=== PATIENT | female | born 1970 | race Caucasian/White ===

== ENCOUNTER 2021-09-06 20:48 | Emergency (ER) | payer MEDICAID ==
[2021-09-06] MEDS ORDERED: Albuterol/Ipratropium 3.0-0.5 MG/3 ML Neb Soln NEB ONE ×3 (22:16)
[2021-09-06 22:48] LABS: BLOOD UREA NITROGEN,BUN 8 mg/dL (7.0-18.0); CARBON DIOXIDE,CO2 26.4 mmol/L (21.0-32.0); CHLORIDE,CL 99 mmol/L (98-107); GLUCOSE RANDOM 109 mg/dL (74-106); POTASSIUM,K 3.2 mmol/L (3.5-5.1); SODIUM,NA 139 mmol/L (136-145)
[2021-09-06 23:10] LABS: CORONAVIRUS COVID-19 NAA POSITIVE (NEGATIVE); INFLUENZA A NAA NEGATIVE (NEGATIVE); INFLUENZA B NAA NEGATIVE (NEGATIVE)
== END 2021-09-06 23:40 | disposition home or self-care (01) ==
LOC: MW.ED 20:48
DX: U07.1 COVID-19 (principal); J20.9 Acute bronchitis, unspecified; Z88.0 Allergy status to penicillin; Z88.5 Allergy status to narcotic agent
CPT/HCPCS: 0240U; 36415; 71045; 80053; 85025; 93005; 99285; J7620-GY

== ENCOUNTER 2021-09-15 01:04 | Emergency (ER) | payer MEDICAID | END 2021-09-15 02:53 | disposition home or self-care (01) | LOC: MW.ED 01:04 | DX: S70.01XA Contusion of right hip, initial encounter (principal); S20.212A Contusion of left front wall of thorax, initial encounter; N39.0 Urinary tract infection, site not specified; Z88.0 Allergy status to penicillin; Z88.1 Allergy status to other antibiotic agents; Y04.0XXA Assault by unarmed brawl or fight, initial encounter | CPT/HCPCS: 99283 ==

== ENCOUNTER 2021-09-26 01:09 | Emergency (ER) | payer MEDICAID ==
[2021-09-26] MEDS ORDERED: Iopamidol 755 MG/ML 500 ML Multipack Bottle IVPUSH ONE (01:58)
[2021-09-26 02:20] LABS: BLOOD UREA NITROGEN,BUN 7 mg/dL (7.0-18.0); CARBON DIOXIDE,CO2 28.5 mmol/L (21.0-32.0); CHLORIDE,CL 105 mmol/L (98-107); GLUCOSE RANDOM 105 mg/dL (74-106); POTASSIUM,K 3.5 mmol/L (3.5-5.1); SODIUM,NA 145 mmol/L (136-145)
[2021-09-26] MEDS ORDERED: Acetaminophen 500 MG Tab PO ONE (03:04)
== END 2021-09-26 03:48 | disposition left against medical advice (07) ==
LOC: MW.ED 01:09
DX: S00.03XA Contusion of scalp, initial encounter (principal); Z88.0 Allergy status to penicillin; Z88.5 Allergy status to narcotic agent; Y04.0XXA Assault by unarmed brawl or fight, initial encounter
CPT/HCPCS: 36415; 70450; 70498; 71045; 80053; 81003; 85025; 85610; 99284; A9270; Q9967; 99283

== ENCOUNTER 2022-05-23 12:24 | Emergency (ER) | payer OTHER, MEDICAID ==
[2022-05-23] MEDS ORDERED: Diphtheria,Pertussis(Acell),Tetanus Vaccine 0.5 ML Syringe IM ONE (13:30)
== END 2022-05-23 13:59 | disposition home or self-care (01) ==
LOC: MW.ED 12:24
DX: S61.233A Puncture wound without foreign body of left middle finger without damage to nail, initial encounter (principal); F17.210 Nicotine dependence, cigarettes, uncomplicated; Z88.0 Allergy status to penicillin; Z88.5 Allergy status to narcotic agent; Z23 Encounter for immunization; W27.3XXA Contact with needle (sewing), initial encounter
CPT/HCPCS: 36415; 86706; 86803; 87340; 87389; 90471; 90715; 99283-25

== ENCOUNTER 2022-09-05 22:08 | Emergency (ER) | payer MEDICAID ==
[2022-09-05] MEDS ORDERED: methylPREDNISolone Sodium Succinate 125 MG/2 ML SDV IVPUSH ONE (22:54)
[2022-09-05] MEDS ORDERED: Sodium Chloride 0.9% 10 ML Syringe FLUSH PRN (22:54)
[2022-09-05] MEDS ORDERED: Albuterol/Ipratropium 3.0-0.5 MG/3 ML Neb Soln NEB ONE (22:54)
[2022-09-05] MEDS ORDERED: Sodium Chloride 0.9% 1,000 ML IV ONE (22:54)
[2022-09-05] MEDS ORDERED: cefTRIAXone 2 GM in Premix Bag 1 BAG IV ONE (22:54)
[2022-09-05] MEDS ORDERED: Doxycycline 100 MG Cap PO ONE (22:54)
[2022-09-05] MEDS ORDERED: Sodium Chloride 0.9% 2.5 ML Syringe FLUSH PRN (22:54)
[2022-09-06 00:22] LABS: CARBON DIOXIDE,CO2 27.3 mmol/L (21.0-32.0); POTASSIUM,K 3.3 mmol/L (3.5-5.1)
[2022-09-06 00:48] LABS: CORONAVIRUS COVID-19 NAA NEGATIVE (NEGATIVE); INFLUENZA A NAA NEGATIVE (NEGATIVE); INFLUENZA B NAA NEGATIVE (NEGATIVE); RESPIRATORY SYNCYTIAL VIR NAA NEGATIVE (NEGATIVE)
== END 2022-09-06 01:50 | disposition left against medical advice (07) ==
LOC: MW.ED 22:08
DX: J44.1 Chronic obstructive pulmonary disease with (acute) exacerbation (principal); Z88.0 Allergy status to penicillin; Z88.5 Allergy status to narcotic agent; Z20.822 Contact with and (suspected) exposure to COVID-19
CPT/HCPCS: 0241U; 36415; 71046; 80048; 83735; 84484; 85025; 96365; 96375; 99285; A9270; J0696; J2930; J3490; J7030; 99284; J7620-GY

== ENCOUNTER 2023-01-09 22:40 | Emergency (ER) | payer MEDICAID ==
[2023-01-09] MEDS ORDERED: Ibuprofen 600 MG Tab PO ONE (23:23)
[2023-01-09] MEDS ORDERED: Acetaminophen/oxyCODONE 325-5 MG Tab PO ONE (23:23)
== END 2023-01-09 23:36 | disposition home or self-care (01) ==
LOC: MW.ED 22:40
DX: T65.891A Toxic effect of other specified substances, accidental (unintentional), initial encounter (principal); T21.45XA Corrosion of unspecified degree of buttock, initial encounter; J44.9 Chronic obstructive pulmonary disease, unspecified; Z88.0 Allergy status to penicillin; Z88.5 Allergy status to narcotic agent
CPT/HCPCS: 99283; A9270

== ENCOUNTER 2023-06-01 08:16 | Emergency (ER) | payer MEDICAID ==
[2023-06-01] MEDS ORDERED: Ibuprofen 600 MG Tab PO ONE (08:35)
[2023-06-01] MEDS ORDERED: Acetaminophen/oxyCODONE 325-5 MG Tab PO ONE (08:35)
== END 2023-06-01 09:24 | disposition home or self-care (01) ==
LOC: MW.ED 08:16
DX: M19.90 Unspecified osteoarthritis, unspecified site (principal); F17.210 Nicotine dependence, cigarettes, uncomplicated; Z88.0 Allergy status to penicillin; Z88.5 Allergy status to narcotic agent
CPT/HCPCS: 73100; 73120; 99283; A9270

== ENCOUNTER 2023-08-10 16:54 | Emergency (ER) | payer MEDICAID ==
[2023-08-10] MEDS: traMADol 50 MG Tab PO STA (18:39)
== END 2023-08-10 19:51 | disposition home or self-care (01) ==
LOC: MW.ED 16:54
DX: M54.50 Low back pain, unspecified (principal); F17.210 Nicotine dependence, cigarettes, uncomplicated; Z88.0 Allergy status to penicillin; Z88.5 Allergy status to narcotic agent; Z90.710 Acquired absence of both cervix and uterus; W10.8XXA Fall (on) (from) other stairs and steps, initial encounter
CPT/HCPCS: 72131; 72192; 99283; A9270

== ENCOUNTER 2023-08-19 13:37 | Emergency (ER) | payer MEDICAID | END 2023-08-19 14:59 | disposition home or self-care (01) | LOC: MW.ED 13:37 | DX: H10.32 Unspecified acute conjunctivitis, left eye (principal); Z88.0 Allergy status to penicillin; Z88.5 Allergy status to narcotic agent; Z90.710 Acquired absence of both cervix and uterus | CPT/HCPCS: 99283 ==

== ENCOUNTER 2023-09-12 21:53 | Emergency (ER) | payer MEDICAID ==
[2023-09-12 22:39] LABS: BASOPHILS ABSOLUTE AUTO 0.01 K/uL (0.00-0.20); BASOPHILS PERCENT AUTO 0.1 % (0.0-1.0); EOSINOPHILS ABSOLUTE AUTO 0.12 K/uL (0.00-0.45); EOSINOPHILS PERCENT AUTO 1.1 % (0.0-6.0); HEMATOCRIT 43.8 % (37.0-47.0); HEMOGLOBIN 15.2 g/dL (12.0-16.0); IMMATURE GRAN ABSOLUTE AUTO 0.03 K/uL (0.00-0.05); IMMATURE GRAN PERCENT AUTO 0.3 % (0.0-0.4); LYMPHOCYTES ABSOLUTE AUTO 1.74 K/uL (1.00-4.80); LYMPHOCYTES PERCENT AUTO 16.7 % (24.0-44.0); MEAN CORPUSCULAR HEMOGLOBIN 31.4 pg (28.0-32.0); MEAN CORPUSCULAR HGB CONC 34.7 g/dL (32.0-36.0); MEAN CORPUSCULAR VOLUME 90.5 fL (83.0-99.0); MEAN PLATELET VOLUME 9.7 fL (9.4-12.3); MONOCYTES ABSOLUTE AUTO 0.82 K/uL (0.00-0.80); MONOCYTES PERCENT AUTO 7.8 % (0.0-8.0); NEUTROPHILS ABSOLUTE AUTO 7.73 K/uL (1.80-7.70); PLATELET COUNT,PLT 297 K/uL (150-400); RED BLOOD CELL COUNT 4.84 M/uL (4.10-5.30); WHITE BLOOD CELL COUNT,WBC 10.45 K/uL (3.9-11.3)
[2023-09-12] MEDS: Ondansetron 4 MG/2 ML SDV IVPUSH ONE (22:43)
[2023-09-12] MEDS: Sodium Chloride 0.9% 2.5 ML Syringe FLUSH PRN (22:43)
[2023-09-12] MEDS: Sodium Chloride 0.9% 10 ML Syringe FLUSH PRN (22:43)
[2023-09-12] MEDS: fentaNYL 50 MCG/ML SDV IVPUSH ONE (22:43)
[2023-09-12 23:02] LABS: ALANINE AMINOTRANSFERASE,ALT 34 IU/L (14-63); ALBUMIN 3.9 g/dL (3.4-5.0); ALKALINE PHOSPHATASE 160 U/L (46-116); ASPARTATE AMNIOTRANSFERASE,AST 30 IU/L (15-37); BILIRUBIN TOTAL 0.3 mg/dL (0.2-1.0); BLOOD UREA NITROGEN,BUN 19 mg/dL (7.0-18.0); CALCIUM 9.2 mg/dL (8.5-10.1); CARBON DIOXIDE,CO2 23.1 mmol/L (21.0-32.0); CHLORIDE,CL 101 mmol/L (98-107); CREATININE 0.9 mg/dL (0.6-1.0); GLUCOSE RANDOM 102 mg/dL (74-106); LIPASE 49 U/L (16-77); POTASSIUM,K 3.8 mmol/L (3.5-5.1); SODIUM,NA 138 mmol/L (136-145)
[2023-09-12 23:03] LABS: ESTIMATED GFR 76 mL/min (>60)
[2023-09-12] MEDS: Iopamidol 755 MG/ML 500 ML Multipack Bottle IVPUSH STA (23:34)
== END 2023-09-13 01:05 | disposition home or self-care (01) ==
LOC: MW.ED 21:53
DX: S33.5XXA Sprain of ligaments of lumbar spine, initial encounter (principal); S63.501A Unspecified sprain of right wrist, initial encounter; S10.93XA Contusion of unspecified part of neck, initial encounter; Z90.49 Acquired absence of other specified parts of digestive tract; Z90.710 Acquired absence of both cervix and uterus; Z88.0 Allergy status to penicillin; Z88.5 Allergy status to narcotic agent; Y04.2XXA Assault by strike against or bumped into by another person, initial encounter
CPT/HCPCS: 36415; 70450; 70491; 72128; 72131; 73110; 73130; 80053; 83690; 85025; 96374; 96375; 99284; J2405; J3010; J3490; Q9967

== ENCOUNTER 2023-11-06 22:14 | Emergency (ER) | payer MEDICAID | END 2023-11-06 23:59 | disposition home or self-care (01) | LOC: MW.ED 22:14 | DX: S60.211A Contusion of right wrist, initial encounter (principal); Z88.0 Allergy status to penicillin; Z90.49 Acquired absence of other specified parts of digestive tract; Z90.710 Acquired absence of both cervix and uterus; Z75.8 Other problems related to medical facilities and other health care; W19.XXXA Unspecified fall, initial encounter | CPT/HCPCS: 73110-26-RT; 73110-RT; 99282; 99283 ==